=== PATIENT | female | born 1990 | race Caucasian/White ===

== ENCOUNTER 2016-02-28 21:18 | Emergency (ER) | payer SELFPAY ==
[~2016-02-28] VITALS: Ht 152.4 cm; Wt 62.6 kg
[2016-02-28] MEDS ORDERED: PROZAC20 MG PO (21:35)
[2016-02-28] MEDS ORDERED: ATIVAN0.5 MG PO (21:35)
== END 2016-02-28 22:52 | disposition home or self-care (01) ==
LOC: ED 21:18
DX: F41.9 Anxiety disorder, unspecified (principal)